=== PATIENT | female | born 1980 | race Caucasian/White ===

== ENCOUNTER 2019-02-23 12:20 | Emergency (ER) | payer OTHER ==
[~2019-02-23] VITALS: Ht 167.6 cm; Wt 73.5 kg
[2019-02-23 12:37] VITALS: BP 145/81
--- NOTE | 2019-02-23 12:48 | PHYS DOC ---
Past History Past Medical History: No Pertinent History Past Surgical History: Hysterectomy, Other Alcohol Use: Rarely Drug Use: None Adult General Chief Complaint Chief Complaint: LOWEREXTREMITY INJURY HPI HPI 38-year-old female presents with left ankle pain. The patient was wearing sandals and helping her move a freezer. He went to push and the freezer struck the medial malleolus of the left ankle. The patient was able to finish moving the freezer. She continues to have pain just behind the medial malleolus. She is able to walk. She has a significant history of fractures to this area in the past. The pain is 3 out of 10. She denies any other injuries or complaints. Review of Systems Review of Systems Constitutional: Denies fever or chills [] Eyes: Denies change in visual acuity, redness, or eye pain [] HENT: Denies nasal congestion or sore throat [] Respiratory: Denies cough or shortness of breath [] Cardiovascular: No additional information not addressed in HPI [] GI: Denies abdominal pain, nausea, vomiting, bloody stools or diarrhea [] : Denies dysuria or hematuria [] Musculoskeletal: Left ankle pain[] Integument: Denies rash or skin lesions [] Neurologic: Denies headache, focal weakness or sensory changes [] Endocrine: Denies polyuria or polydipsia [] All other systems were reviewed and found to be within normal limits, except as documented in this note. Allergies Allergies Allergies Coded Allergies Type Severity Reaction Last Updated Verified latex Allergy Intermediate 02/23/19 Yes adhesive Allergy Mild 02/23/19 Yes Physical Exam Physical Exam Constitutional: Well developed, well nourished, no acute distress, non-toxic appearance. [] HENT: Normocephalic, atraumatic, bilateral external ears normal, oropharynx moist, no oral exudates, nose normal. [] Eyes: PERRLA, EOMI, conjunctiva normal, no discharge. [] Neck: Normal range of motion, no tenderness, supple, no stridor. [] Cardiovascular:Heart rate regular rhythm, no murmur [] Lungs & Thorax: Bilateral breath sounds clear to auscultation [] Abdomen: Bowel sounds normal, soft, no tenderness, no masses, no pulsatile masses. [] Skin: Warm, dry, no erythema, no rash. [] Back: No tenderness, no CVA tenderness. [] Extremities: No ecchymosis or obvious deformity of left ankle. Pain with palpation inferior and posterior of the medial malleolus.[] Neurologic: Alert and oriented X 3, normal motor function, normal sensory function, no focal deficits noted. [] Psychologic: Affect normal, judgement normal, mood normal. [] Current Patient Data Vital Signs Vital Signs Date Time Temp Pulse Resp B/P (MAP) Pulse Ox O2 Delivery O2 Flow Rate FiO2 02/23/19 12:37 98.9 98 18 99 Room Air EKG EKG [] Radiology/Procedures Radiology/Procedures [] Impressions: EXAM: Right foot and ankle, 3 views. HISTORY: Blunt trauma. COMPARISON: None. FINDINGS: 3 views of the right foot and ankle are obtained. There is no fracture, dislocation or subluxation. There is a small possible naviculare. There is a tiny plantar spur. The ankle mortise is intact. No osteochondral lesion is seen. IMPRESSION: No acute osseous finding. Electronically signed by: Dipti Sharma MD (02/23/2019 12:43 PM) [facility] DICTATED AND SIGNED BY: DIPTI SHARMA MD DATE: 02/23/19 1243 CC: ADRIAN SEQUEIRA DO; PCP,NO ~ Course & Med Decision Making Course & Med Decision Making Pertinent Labs and Imaging studies reviewed. (See chart for details) The patient does not have a fracture or dislocation. This is likely just a contusion. Range of motion is intact. No laxity of ligaments. I will advise insulin therapy and rice therapy. The patient is stable for discharge at this time. [] Dragon Disclaimer Dragon Disclaimer This electronic medical record was generated, in whole or in part, using a voice recognition dictation system. Departure Departure: Impression: Primary Impression: Contusion of left ankle Disposition: 01 HOME, SELF-CARE Condition: STABLE Referrals: PCP,NO (PCP) Patient Instructions: Foot Contusion, [id number] Problem Qualifiers Primary Impression: Contusion of left ankle Encounter type: initial encounter Qualified Codes: S90.02XA - Contusion of left ankle, initial encounter ADRIAN SEQUEIRA DO Feb 23, 2019 12:48
== END 2019-02-23 13:02 | disposition home or self-care (01) ==
LOC: ER 12:20
DX: S90.02XA Contusion of left ankle, initial encounter (principal); Z91.040 Latex allergy status; Z88.8 Allergy status to other drugs, medicaments and biological substances; W20.8XXA Other cause of strike by thrown, projected or falling object, initial encounter; Y93.89 Activity, other specified; Y92.89 Other specified places as the place of occurrence of the external cause; Y99.8 Other external cause status
CPT/HCPCS: 73610; 73630; 99283